=== PATIENT | male | born 1970 | race Caucasian/White ===

== ENCOUNTER 2023-06-30 21:12 | Emergency (ER) | payer SELFPAY ==
[~2023-06-30] VITALS: Ht 190.5 cm; Wt 105.0 kg
[2023-07-01 01:16] VITALS: BP 144/82; TEMP 98.6; O2SAT 100
== END 2023-07-01 05:48 | disposition left against medical advice (07) ==
LOC: M ED 21:12
DX: Z53.21 Procedure and treatment not carried out due to patient leaving prior to being seen by health care provider (principal)

== ENCOUNTER 2023-07-02 01:32 | Emergency (ER) | payer SELFPAY ==
[~2023-07-02] VITALS: Ht 182.9 cm; Wt 100.0 kg
[2023-07-03] MEDS ORDERED: PATIENT COMMENT (01:27)
== END 2023-07-02 04:45 | disposition left against medical advice (07) ==
LOC: M ED 01:32
DX: Z53.21 Procedure and treatment not carried out due to patient leaving prior to being seen by health care provider (principal)

== ENCOUNTER 2023-07-02 19:51 | Inpatient (IN) | payer OTHER, SELFPAY ==
[~2023-07-02] VITALS: Ht 190.5 cm; Wt 103.9 kg
[2023-07-02 22:45] LABS: BASO # 0.1 10^3/uL (0.0-0.2); BASO % 0.2 % (0.0-1.0); HEMOGLOBIN 12.5 g/dl (13.5-17.5); LYMPH # 0.7 10^3/uL (1.5-5.0); LYMPH % 3.4 % (24.0-44.0); MEAN CORPUSCULAR HEMOGLOBIN 30.6 pg (27.0-33.0); MEAN CORPUSCULAR HGB CONC 34.7 g/dl (32.0-36.5); MEAN CORPUSCULAR VOLUME 88.2 fl (80.0-96.0); MONO # 1.1 10^3/uL (0.0-0.8); MONO % 5.2 % (2.0-8.0); NEUTROPHILS # 18.7 10^3/uL (1.5-8.5); NEUTROPHILS % 90.6 % (36.0-66.0); PLATELET COUNT, AUTOMATED 456 10^3/uL (150-450); RED BLOOD COUNT 4.08 10^6/uL (4.30-6.10); WHITE BLOOD COUNT 20.7 10^3/uL (4.0-10.0)
[2023-07-02 23:00] LABS: ETHYL ALCOHOL (ETHANOL) < 0.003 % (0.000-0.010)
[2023-07-02 23:02] LABS: ALBUMIN 3.7 G/DL (3.2-5.2); ALKALINE PHOSPHATASE 139 U/L (46-116); ALT/SGPT 33 U/L (7.0-40); AST/SGOT 42 U/L (<34); BILIRUBIN,DIRECT 0.3 MG/DL (<0.4); BILIRUBIN,TOTAL 0.8 MG/DL (0.3-1.2); BLOOD UREA NITROGEN 24 MG/DL (9-23); CALCIUM LEVEL 9.1 MG/DL (8.5-10.1); CARBON DIOXIDE LEVEL 23 MMOL/L (20-31); CHLORIDE LEVEL 103 MMOL/L (98-107); CREATININE FOR GFR 0.97 MG/DL (0.70-1.30); GLOMERULAR FILTRATION RATE > 60.0 (>56); GLUCOSE, FASTING 155 MG/DL (60-100); POTASSIUM SERUM 4.4 MMOL/L (3.5-5.1); SALICYLATE LEVEL < 3.0 MG/DL (<30); SODIUM LEVEL 133 MMOL/L (136-145); TOTAL PROTEIN 6.4 G/DL (5.7-8.2)
[2023-07-02 23:04] LABS: THYROID STIMULATING HORMONE 0.521 uIU/ML (0.55-4.78)
[2023-07-02 23:36] LABS: AMPHETAMINES LEVEL URINE NEGATIVE (NEGATIVE); BARBITURATES URINE NEGATIVE (NEGATIVE); BENZODIAZEPINES URINE NEGATIVE (NEGATIVE); COCAINE METABOLITE URINE NEGATIVE (NEGATIVE); METHADONE URINE NEGATIVE (NEGATIVE); OPIATES URINE NEGATIVE (NEGATIVE); PHENCYCLIDINE URINE NEGATIVE (NEGATIVE)
[2023-07-02 23:37] LABS: CANNABINOIDS URINE NEGATIVE (NEGATIVE)
[2023-07-03] MEDS ORDERED: PATIENT COMMENT (01:27)
[2023-07-03] MEDS ORDERED: HOME MED LIST COMPLETE! XX SCH (01:30)
[2023-07-03] MEDS ORDERED: diphenhydrAMINE 25MG CAP PO PRN (20:35)
[2023-07-03] MEDS ORDERED: traZODone 50 MG TAB PO PRN (20:35)
[2023-07-03] MEDS ORDERED: MOM 30ML SUSPENSION UDC PO PRN (20:35)
[2023-07-03] MEDS ORDERED: MAALOX 30 ML SUSP *UDC PO PRN (20:35)
[2023-07-03 22:29] VITALS: BP 167/88; TEMP 97.8; O2SAT 99
[2023-07-04] MEDS: LEVOTHYROXINE 25MCG TABLET (0.025MG) PO SCH (05:31)
[2023-07-04 06:33] VITALS: BP 176/95; TEMP 97.6; O2SAT 100
[2023-07-04] MEDS: OLANZapine 5 MG TAB PO SCH (09:00)
[2023-07-04] MEDS: ATORVASTATIN 20 MG TAB PO SCH (09:00)
[2023-07-04] MEDS ORDERED: LOSARTAN 50MG TABLET PO SCH (09:00)
[2023-07-04] MEDS: NICOTINE 21MG/24HR 1 EA TRANSDERMAL TD SCH (09:00)
[2023-07-04] MEDS ORDERED: NYSTATIN 100,000 UNITS/GM TOPICAL PWD 15GM TOP SCH (09:00)
[2023-07-04] MEDS: METOPROLOL SUCC *XL* 25MG TAB (TopROL *XL*) PO SCH (09:56)
[2023-07-04] MEDS: amLODIPine 5 MG TAB PO SCH (09:56)
[2023-07-04] MEDS: KETOCONAZOLE 2% CREAM TOP SCH (10:22)
[2023-07-04 19:45] VITALS: BP 148/87
[2023-07-05 15:52] VITALS: BP 126/70; TEMP 98.4; O2SAT 99
[2023-07-06 06:28] VITALS: BP 137/86; TEMP 97.8; O2SAT 95
[2023-07-06 16:03] VITALS: BP 145/84; TEMP 97.6; O2SAT 98
[2023-07-07 06:40] VITALS: BP 140/92; TEMP 96.4; O2SAT 97
[2023-07-07 14:36] LABS: BASO # 0.1 10^3/uL (0.0-0.2); BASO % 0.8 % (0.0-1.0); EOS # 0.1 10^3/uL (0.0-0.5); EOS % 0.9 % (0.0-3.0); HEMATOCRIT 41.8 % (42.0-52.0); LYMPH # 1.7 10^3/uL (1.5-5.0); LYMPH % 22.5 % (24.0-44.0); MEAN CORPUSCULAR HEMOGLOBIN 30.3 pg (27.0-33.0); MEAN CORPUSCULAR HGB CONC 33.5 g/dl (32.0-36.5); MEAN CORPUSCULAR VOLUME 90.5 fl (80.0-96.0); MONO # 0.5 10^3/uL (0.0-0.8); MONO % 6.2 % (2.0-8.0); NEUTROPHILS # 5.3 10^3/uL (1.5-8.5); NEUTROPHILS % 69.2 % (36.0-66.0); PLATELET COUNT, AUTOMATED 502 10^3/uL (150-450); RED BLOOD COUNT 4.62 10^6/uL (4.30-6.10); WHITE BLOOD COUNT 7.7 10^3/uL (4.0-10.0)
[2023-07-07 15:02] LABS: BLOOD UREA NITROGEN 14 MG/DL (9-23); CALCIUM LEVEL 9.8 MG/DL (8.5-10.1); CARBON DIOXIDE LEVEL 26 MMOL/L (20-31); CHLORIDE LEVEL 105 MMOL/L (98-107); CHOLESTEROL LEVEL 172 MG/DL (<200); CHOLESTEROL RISK RATIO 4.69 (<5); CREATININE FOR GFR 0.87 MG/DL (0.70-1.30); GLOMERULAR FILTRATION RATE > 60.0 (>56); GLUCOSE, FASTING 93 MG/DL (60-100); HDL CHOLESTEROL 36.6 MG/DL (>40); LDL CHOLESTEROL 112.8 MG/DL (<100); NON-HDL-C 135.4 MG/DL; POTASSIUM SERUM 4.3 MMOL/L (3.5-5.1); SODIUM LEVEL 136 MMOL/L (136-145); TRIGLYCERIDES LEVEL 113 MG/DL (<150)
[2023-07-07 15:11] LABS: PROCALCITONIN <0.04 ng/ml
[2023-07-07 15:39] LABS: HEPATITIS B CORE ANTIBODY IGM NEGATIVE (NEGATIVE); HEPATITIS C VIRUS ABY INDEX < 0.02 INDEX (<0.8)
[2023-07-07 16:42] VITALS: BP 151/95; TEMP 98.3; O2SAT 97
[2023-07-07] MEDS: IBUPROFEN 400MG TAB PO PRN (16:55)
[2023-07-08 06:10] VITALS: BP 129/85; TEMP 96.9; O2SAT 98
[2023-07-08] MEDS: ACETAMINOPHEN TAB 650MG DOSE (2X325MG) PO PRN (10:58)
[2023-07-08] MEDS: risperiDONE 2 MG TAB PO SCH (11:08)
[2023-07-09 06:32] VITALS: BP 138/78; TEMP 97; O2SAT 98
[2023-07-09 08:06] VITALS: BP 136/79
[2023-07-09 18:19] VITALS: BP 132/61; TEMP 98.4
[2023-07-10 06:22] VITALS: BP 123/69; TEMP 97.1; O2SAT 96
[2023-07-10 16:58] VITALS: BP 150/80; TEMP 98.2; O2SAT 100
[2023-07-11 06:04] VITALS: BP 114/73; TEMP 98.1; O2SAT 98
[2023-07-11 16:29] VITALS: BP 139/98; TEMP 97.5; O2SAT 100
[2023-07-12 11:17] LABS: RISPERIDONE1 <0.5 ng/ml (Not Estab.); RISPERIDONE2 1.2 ng/ml (Not Estab.); RISPERIDONE3 1.2 ng/ml (10.0-120.0)
[2023-07-12 16:04] VITALS: BP 123/79; TEMP 97.9; O2SAT 99
[2023-07-13 06:25] VITALS: BP 126/73; TEMP 97.5; O2SAT 98
[2023-07-13 16:23] VITALS: BP 131/78; TEMP 97.7; O2SAT 100
[2023-07-14 06:05] VITALS: BP 127/88; TEMP 97.4; O2SAT 98
[2023-07-14 18:13] VITALS: BP 140/80; TEMP 97
[2023-07-14] MEDS: risperiDONE 2 MG TAB PO SCH (20:28)
[2023-07-15 06:12] VITALS: BP 132/84; TEMP 97.2; O2SAT 98
[2023-07-15 18:26] VITALS: BP 144/86; TEMP 97.6
[2023-07-15] MEDS: PILL CUTTER 1 EACH XX PRN (20:17)
[2023-07-16 05:53] VITALS: BP 146/90; TEMP 97.1; O2SAT 100
[2023-07-16 17:12] VITALS: BP 130/80; TEMP 97.8
[2023-07-17 06:19] VITALS: BP 130/91; TEMP 98.1; O2SAT 96
[2023-07-17 16:25] VITALS: BP 129/74; TEMP 98.1; O2SAT 100
[2023-07-18 06:32] VITALS: BP 146/83; TEMP 97.2; O2SAT 98
[2023-07-18 16:27] VITALS: BP 130/82; TEMP 97.8; O2SAT 100
[2023-07-19 06:19] VITALS: BP 140/86; TEMP 97.4; O2SAT 100
[2023-07-19] MEDS ORDERED: risperiDONE LONG-ACTING 37.5MG 2ML INJ IM SCH (09:00)
[2023-07-19 15:58] VITALS: BP 136/84; TEMP 98; O2SAT 98
[2023-07-20 06:07] VITALS: BP 131/74; TEMP 97.1; O2SAT 96
[2023-07-20] MEDS ORDERED: risperiDONE LONG-ACTING 37.5MG 2ML INJ IM SCH (09:00)
[2023-07-20 15:50] VITALS: BP 140/80; TEMP 97.8; O2SAT 100
[2023-07-21 06:12] VITALS: BP 117/74; TEMP 97.8
[2023-07-21] MEDS: DIVALPROEX 250MG *ER* TAB PO SCH (09:00)
[2023-07-21] MEDS ORDERED: risperiDONE LONG-ACTING 37.5MG 2ML INJ IM SCH (09:00)
[2023-07-21] MEDS: PALIPERIDONE PAL 234MG/1.5ML INJ (INVEGA)(FREE PSY INPT ONLY) IM ONE (11:45)
[2023-07-21 17:48] VITALS: BP 142/74; TEMP 97.4
[2023-07-22 06:29] VITALS: BP 126/77; TEMP 97.3; O2SAT 98
[2023-07-22 08:06] VITALS: BP 156/90
[2023-07-22] MEDS: PALIPERIDONE PAL 234MG/1.5ML INJ (INVEGA)(FREE PSY INPT ONLY) IM ONE (08:25)
[2023-07-22 16:02] VITALS: BP 137/67; TEMP 97.5; O2SAT 99
[2023-07-23 06:34] VITALS: BP 129/74; TEMP 97.8; O2SAT 99
[2023-07-23 18:30] VITALS: BP_SYST 116; BP_SYST 129; BP_DIAS 74; BP_DIAS 85; TEMP 97; TEMP 98.5
[2023-07-24 06:37] VITALS: BP 121/78; TEMP 98.3; O2SAT 96
[2023-07-24 15:57] VITALS: BP 143/88; TEMP 97; O2SAT 99
[2023-07-25 05:37] VITALS: BP 125/76; TEMP 98.1; O2SAT 95
[2023-07-25] MEDS: risperiDONE 3 MG TAB PO SCH (09:58)
[2023-07-25] MEDS: PALIPERIDONE PAL 156MG/1ML INJ(INVEGA)(FREE PSY INPT ONLY) IM ONE (11:50)
[2023-07-25 16:14] VITALS: BP 134/82; TEMP 97.2; O2SAT 100
[2023-07-26 06:38] VITALS: BP 128/81; TEMP 98.1; O2SAT 99
[2023-07-26 16:12] VITALS: BP 128/70; TEMP 97.3; O2SAT 100
[2023-07-27 06:33] VITALS: BP 104/73; TEMP 98.8; O2SAT 98
[2023-07-27 16:16] VITALS: BP 133/78; TEMP 97.6; O2SAT 98
[2023-07-28 06:18] VITALS: BP 109/65; TEMP 98; O2SAT 99
[2023-07-28] MEDS ORDERED: ATOR1TAB21 PO (15:57)
[2023-07-28] MEDS ORDERED: RISP3TAB20 PO (15:57)
[2023-07-28] MEDS ORDERED: LEVO25TA5 PO (15:57)
[2023-07-28] MEDS ORDERED: METO1TAB32 PO (15:57)
[2023-07-28] MEDS ORDERED: INVE234I IM (15:57)
[2023-07-28] MEDS ORDERED: DEPA250T2 PO (15:57)
[2023-07-28] MEDS ORDERED: AMLO1TAB24 PO (15:57)
[2023-07-28] MEDS ORDERED: NICO21PAT TD (15:57)
[2023-07-28 17:21] VITALS: BP 133/83; TEMP 97.5; O2SAT 99
[2023-07-29 06:11] VITALS: BP 118/71; TEMP 98.7; O2SAT 99
[2023-07-29 17:22] VITALS: BP 142/83; TEMP 97.3; O2SAT 97
[2023-07-30 06:14] VITALS: BP 118/90; TEMP 98.7; O2SAT 96
[2023-07-30 08:06] VITALS: BP 136/83
== END 2023-07-30 10:32 | disposition home or self-care (01) | DRG 885 ==
LOC: M ED 19:51 → M ED INP 07-03 20:34 → M PSY 07-03 22:06
PROVIDERS: ADMIT Student in an Organized Health Care Education/Training Program; ATTEND Student in an Organized Health Care Education/Training Program
DX: F20.9 Schizophrenia, unspecified (principal); E87.1 Hypo-osmolality and hyponatremia; F31.9 Bipolar disorder, unspecified; I10 Essential (primary) hypertension; E78.5 Hyperlipidemia, unspecified; B35.9 Dermatophytosis, unspecified; F17.200 Nicotine dependence, unspecified, uncomplicated; M25.472 Effusion, left ankle; E07.9 Disorder of thyroid, unspecified; Z11.52 Encounter for screening for COVID-19